=== PATIENT | female | born 1975 | race Caucasian/White ===

== ENCOUNTER → 2016-11-19 | Outpatient (CLI) | payer OTHER ==
--- NOTE | 2016-11-19 07:50 | US ---
EXAMINATION TYPE: US transvaginal DATE OF EXAM: 11/19/2016 COMPARISON: prior us 2013 CLINICAL HISTORY: D25.9 UTERINE FIBROID. dub, gen pelvic pain and pressure TECHNIQUE: Transvaginal (TV) pelvic ultrasound. Date of LMP: 3 wks ago EXAM MEASUREMENTS: Uterus: 12.8 x 8.9 x 10.8 cm Endometrial Stripe: 0.7 cm Right Ovary: 2.2 x 1.3 x 1.8 cm Left Ovary: 3.2 x 1.7 x 3.9 cm 1. Uterus: Anteverted Enlarged, bulky fibroid uterus, largest fibroid mid uterine body measuring 5 .1 x 5.4 x 5.1cm 2. Endometrium: limitations due to scattered attenuating fibroids 3. Right Ovary: wnl 4. Left Ovary: seen with a 1.7cm cyst 5. Bilateral Adnexa: wnl 6. Posterior cul-de-sac: 3.8 x 2.4 x 2.1cm free fluid seen There is markedly heterogeneous prominent uterus felt to reflect underlying fibroids. No well-defined hypoechoic fibroid is clearly seen. Technologist torres 5.1 x 5.4 cm ill-defined isoechoic area centr ally and inferiorly could reflect focal fibroid. Endometrial stripe not well seen on images saved. Sm all amount of free fluid is seen in pelvic cul-de-sac. Both ovaries are identified. Peripheral follicles are scattered throughout the left ovary. No suspici ous adnexal masses are seen. IMPRESSION: Heterogeneous prominent uterus likely reflects underlying fibroids, findings could be bet ter evaluated and characterized with pelvic MRI if desired.
== END | disposition home or self-care (01) ==
LOC: RADUSWWP 06:56
PROVIDERS: ATTEND Obstetrics & Gynecology
DX: D25.9 Leiomyoma of uterus, unspecified (principal)
CPT/HCPCS: 76830

== ENCOUNTER → 2017-09-10 | Outpatient (CLI) | payer BC ==
--- NOTE | 2017-09-10 08:47 | US ---
EXAMINATION TYPE: US gallbladder DATE OF EXAM: 09/10/2017 COMPARISON: NONE CLINICAL HISTORY: R10.9 Abdominal Pain. Intermittent RUQ pain, acid reflux EXAM MEASUREMENTS: Liver Length: 16.1 cm Gallbladder Wall: 0.2 cm CBD: 0.4 cm Right Kidney: 10.3 x 4.5 x 4.3 cm Pancreas: visualized portions wnl, head and tail limited by overlying midline bowel gas Liver: wnl Gallbladder: appears slightly distended Evidence for sonographic Obrien's sign: no CBD: visualized portions wnl, limited by overlying bowel gas Right Kidney: visualized portions wnl, inferior pole limited by overlying bowel gas and cortical easton sured differentiation is maintained There is no ascites. IMPRESSION: There are some limitations to the exam. No abnormality evident to account for patient's s ymptoms.
== END | disposition home or self-care (01) ==
LOC: RADUSWWP 07:00
PROVIDERS: ATTEND Family Medicine
DX: R10.9 Unspecified abdominal pain (principal)
CPT/HCPCS: 76705

== ENCOUNTER → 2017-11-20 | Outpatient (CLI) | payer BC ==
--- NOTE | 2017-11-21 13:53 | MM ---
Reason for exam: screening (asymptomatic). Last mammogram was performed 4 years ago. History: Patient is nulliparous. Taking hormonal contraceptives for 20 years. Physical Findings: A clinical breast exam by your physician is recommended on an annual basis and results should be correlated with mammographic findings. MG Screening Mammo w CAD Bilateral CC and MLO view(s) were taken. Prior study comparison: December 01, 2013, bilateral MG screening mammo w CAD. The breast tissue is heterogeneously dense. This may lower the sensitivity of mammography. Focal asymmetry upper inner right breast 4.7cm from nipple. This finding is changed when compared with previous exams. ASSESSMENT: Incomplete: need additional imaging evaluation, BI-RAD 0 RECOMMENDATION: Special view mammogram of the right breast. If lesion persists on supplemental views, image directed ultrasound is recommended. [facility] will attempt to contact patient to return for supplemental views and ultrasound if indicated.
== END | disposition home or self-care (01) ==
LOC: RADMAMWWP 08:20
PROVIDERS: ATTEND Obstetrics & Gynecology
DX: Z12.31 Encounter for screening mammogram for malignant neoplasm of breast (principal)
CPT/HCPCS: 77067

== ENCOUNTER → 2017-12-03 | Outpatient (CLI) | payer BC ==
--- NOTE | 2017-12-03 08:57 | MM ---
Reason for exam: additional evaluation requested from abnormal screening. Last mammogram was performed less than 1 month ago. History: Patient is nulliparous. Taking hormonal contraceptives for 20 years. Physical Findings: Nurse did not find any significant physical abnormalities on exam. MG Work Up Mamm w CAD RT Spot compression CC, spot compression MLO, and ML view(s) were taken of the right breast. Prior study comparison: November 20, 2017, bilateral MG screening mammo w CAD. December 01, 2013, bilateral MG screening mammo w CAD. No distinct lesion persists on additional views. These results were verbally communicated with the patient and result sheet given to the patient on 12/03/17. ASSESSMENT: Negative, BI-RAD 1 RECOMMENDATION: Return to routine screening mammogram schedule for both breasts.
== END | disposition home or self-care (01) ==
LOC: RADMAMWWP 07:31
PROVIDERS: ATTEND Obstetrics & Gynecology
DX: R92.8 Other abnormal and inconclusive findings on diagnostic imaging of breast (principal)
CPT/HCPCS: 77065

== ENCOUNTER 2018-12-25 08:17 | Inpatient (IN) | payer BC ==
--- NOTE | 2018-12-24 16:36 | P.HPOB ---
History of Present Illness H&P Date: 12/24/18 Chief Complaint: Fibroid uterus Selina is a 43-year-old female with uterine fibroids. Malena didn't present for a number of years, she is more troubled by them and has heavier bleeding due to same. She is scheduled for a robotic-assisted laparoscopic hysterectomy possible EDITH possible BSO. Risks/benefits/alternatives to this procedure were discussed with the patient in detail and all questions were answered for her prior to proceeding to the operating room. On physical exam vital signs are stable and afebrile. Heart regular, lungs clear, extremities without pain. Abdomen soft and nontender. Positive bowel sounds are noted. Pelvic exam reveals fibroid uterus. Assessment fiber uterus. Plan da Edgar hysterectomy possible EDITH possible BSO Past Medical History Past Medical History: GERD/Reflux Additional Past Medical History / Comment(s): uterine fibroid History of Any Multi-Drug Resistant Organisms: None Reported Past Surgical History: Orthopedic Surgery Additional Past Surgical History / Comment(s): lt trigger thumb Past Anesthesia/Blood Transfusion Reactions: Motion Sickness Smoking Status: Never smoker - Past Family History Mother Family Medical History: No Reported History Medications and Allergies Home Medications Medication Instructions Recorded Confirmed Type Amitriptyline HCl [Elavil] 20 mg PO HS 12/16/18 12/16/18 History Blisovi 1 tab PO HS 12/16/18 12/16/18 History Allergies Allergy/AdvReac Type Severity Reaction Status Date / Time No Known Allergies Allergy Verified 12/16/18 15:58 Exam Osteopathic Statement: *. No significant issues noted on an osteopathic structural exam other than those noted in the History and Physical/Consult.
[~2018-12-25 08:17] MED LIST: DEXAMETHASONE SOD PHOSPHATE 10 MG/ML 1 ML VIAL IV ONE; LIDOCAINE 1% 20 ML VIAL (10MG/ML) FOR IV START INTRADERMA PRN; ONDANSETRON 4 MG/2 ML VIAL IVP ONE; ONDANSETRON 4 MG/2 ML VIAL IVP PRN; SCOPOLAMINE 1.5MG/72HR PATCH TRANSDERM ONE; ceFAZolin IN SWFI 2 GM/20 ML SYRINGE IVP ONE
[2018-12-25] MEDS: LACTATED RINGERS 1,000 ML IV SCH ×3 (09:00→23:54)
[2018-12-25] MEDS ORDERED: PROPOFOL 10 MG/ML 20 ML VIAL IV ONE (09:46)
[2018-12-25] MEDS ORDERED: KETOROLAC 30 MG/ML 1 ML VIAL ONE (09:46)
[2018-12-25] MEDS ORDERED: NEOSTIGMINE 1 MG/ML 10 ML VIAL ONE (09:46)
[2018-12-25] MEDS ORDERED: LIDOCAINE 1% INJ 10MG/ML (20 ML MDV) ONE (09:46)
[2018-12-25] MEDS ORDERED: fentaNYL (PF) 50 MCG/ML 2 ML AMP ONE (09:46)
[2018-12-25] MEDS ORDERED: ROCURONIUM BROMIDE 10 MG/ML 10 ML VIAL IV ONE (09:46)
[2018-12-25] MEDS ORDERED: HYDROmorphone (PF) 1 MG/ML ONE (09:46)
[2018-12-25] MEDS ORDERED: MIDAZOLAM 2 MG/2 ML VIAL ONE (09:46)
[2018-12-25] MEDS ORDERED: GLYCOPYRROLATE 0.2 MG/ML 2 ML VIAL ONE (09:46)
[2018-12-25] MEDS ORDERED: BUPIVACAINE (PF) 0.25% 30 ML VIAL SQ ONE (09:49)
[2018-12-25] MEDS ORDERED: LACTATED RINGERS 1,000 ML IV ONE (11:25)
[2018-12-25] MEDS ORDERED: diphenhydrAMINE 50 MG/ML 1 ML VIAL IVP PRN (12:08)
[2018-12-25] MEDS ORDERED: SIMETHICONE 80 MG CHEWABLE PO PRN (12:08)
[2018-12-25] MEDS ORDERED: NALOXONE 0.4 MG/ML 1 ML VIAL IV PRN (12:10)
[2018-12-25] MEDS ORDERED: HYDROmorphone PCA 10 MG/50 ML BAG IV PRN (12:10)
--- NOTE | 2018-12-25 12:20 | P.OP ---
Date of Procedure: 12/25/18 Preoperative Diagnosis: Fibroid uterus Postoperative Diagnosis: Same Procedure(s) Performed: Robotic-assisted laparoscopic hysterectomy converted to total abdominal hysterectomy with salpingectomy Anesthesia: LEXIE Surgeon: Bib Garcia Skip Pitman #1: Shea Gallegos Estimated Blood Loss (ml): 250 IV fluids (ml): 800 Urine output (ml): 400 Pathology: other (Uterus cervix fallopian tubes) Condition: stable Disposition: floor Operative Findings: Grossly enlarged fibroid uterus with minimal mobility Description of Procedure: Patient was taken to the operating suite where a general anesthetic was found be adequate. She was prepped and draped in normal sterile fashion and placed in dorsal lithotomy position. Initially a weighted speculum was inserted into the vagina and the anterior lip of the cervix was identified and grasped single- toothed tenaculum. Cervix was then dilated and sounded to 14 cm. Once this was accomplished a Marilee manipulator was inserted with the cup size of 3 anesthetic excised of 12. Other incidents removed and sutures had been placed at 3 and 9. Powers cath was then placed gloves were changed and attention was turned to the abdominal portion procedure where 2 mL of quarter percent Marcaine was injected 2 cm above the umbilicus. Through this injected anesthetic a 5 mm skin incision was made and through this incision under direct visualization with an optical trocar and sleeve the camera was inserted. Once peritoneal placement was assured gas was left fully insufflate the abdomen and patient was then placed in steep Trendelenburg position. Once this was completed the uterus was elevated but was noted to be elevating minimally therefore a fourth port arm was placed. First the incision was made for the #1 arm 10 cm from the umbilicus and then slightly inferior medial to that under direct observation with transillumination another port and sleeve were inserted. Switching to the other side a on the left side a incision was made approximately 10-12 cm from the umbilicus and then a fifth port was inserted through a 1 cm incision between the left lateral and the medial port. Camera port was exchanged for a da Edgar port and the laparoscopic was removed and the robot was brought in and docked. Once fully docked a Jono was placed and 3 arm a scissor and the one arm and [place] grasper and at this point I did break scrub and go to the console. We were able to manipulate the uterus very minimally it was not mobile and would not come out of the pelvis at all despite multiple attempts. I did clamped cut and burn the tubal segment and utero-ovarian ligament on the left-hand side and then trying to rotate to do the symptoms same the left side the uterus would not manipulate far enough over to be able to access this tissue safely and I was unable to elevate the uterus into the abdomen further to be able to see around the uterus. Therefore at this point we did terminate the laparoscopic robotic component and incidents removed and gas was allowed to expel from the abdomen. 4-0 Vicryl used to close incision subcuticularly. Patient was repositioned slightly and once counts were correct a Pfannenstiel skin incision was made and this incision was extended to the fascial layer with Bovie cautery. Once fascia was nicked in the midline and this opening was extended laterally with Schilling scissors and superior and inferior aspect of this incision were then grasped tented up and bluntly and sharply dissected off the rectus muscles. Rectus muscles were then divided the midline and blunt dissection through the peritoneum was made. Once this was accomplished the peritoneal layer was extended superiorly and inferiorly with good visualization of both bowel bladder. Bladder blade was then placed with the self-retaining retractor and bowels packed out of the operative field. At this point towel clamps were used to clamp the top of the uterus and the uterus was manipulated really 1 cm at a time we are unable to pull the uterus up away from the pelvic sidewall initially therefore being very cautious with our placement of Annie clamps the right side of the uterus including the fallopian tube and round ligament complexes were clamped cut and tied as was the utero-ovarian ligament. Once this was completed and we're in a similar point as to what we had been able to accomplish laparoscopically we were then able to with some pressure pull the uterus up out of the posterior cul-de-sac and pelvis. Once this was, which were able to actually visualize the narrowing of the uterus around the fibroid and we were able to using a clamps clamped the uterine vasculature bilaterally tissues clamped cut and tied. Once this was accomplished uterus vesicular junction was identified and entered with Metzenbaum scissors and the bladder was then dissected bluntly out of the operative field. He clamps then used to clamp through the cardinal and uterosacral ligaments bilaterally. Tissues clamped cut and tied in usual fashion. Once the level of the cervix cuff cuff was entered and the corners were held with 0 Vicryl suture. Once uterus was fully removed 0 Vicryl suture was used to close the vaginal cuff in a running locking fashion. Excellent hemostasis was then obtained pelvis was irrigated with a liter of fluid. No bleeding is noted throughout any of the pedicles the fallopian tubes bilaterally were clamped and were then removed based on what we could still see. All tissue was sent to pathology for evaluation. Once this was completed instruments removed and bowel packing was removed. 0 Vicryl suture was then used to reapproximate the peritoneum. Fascial layer was then closed Lobac suture. One layer of 3-0 Vicryl was placed in deep subcuticular tissues reapproximate skin and close the space. Skin was then closed with 3-0 Vicryl in a running fashion subcuticular. Approximately 6-7 mL of quarter percent Marcaine with were then injected around these robotic incision sites. Sponge, lap, needle counts were all correct 2. Patient was then taken to the recovery room in stable and satisfactory condition.
[2018-12-25] MEDS: HYDROmorphone 0.5 MG/0.5 ML SYRINGE IVP PRN ×3 (12:22→13:09)
[2018-12-25 13:39] VITALS: BMI 34.2
[2018-12-25] MEDS: KETOROLAC 30 MG/ML 1 ML VIAL IVP SCH ×4 (13:40→23:49)
[2018-12-25] MEDS: ONDANSETRON 4 MG/2 ML VIAL IVP PRN (17:57)
[2018-12-25] MEDS: SENNOSIDES-DOCUSATE SODIUM 1 EACH TAB PO SCH (20:58)
[2018-12-26] MEDS: KETOROLAC 30 MG/ML 1 ML VIAL IVP SCH ×3 (06:28→12:06)
[2018-12-26 07:22] LABS: Basophils % (A) 0 %; Eosinophils % (A) 0 %; HCT 36.1 % (34.0-46.0); HGB 11.8 gm/dL (11.4-16.0); Lymphocytes # (A) 1.3 k/uL (1.0-4.8); Lymphocytes % (A) 12 %; MCH 29.5 pg (25.0-35.0); MCHC 32.6 g/dL (31.0-37.0); MCV 90.4 fL (80.0-100.0); Mean Platelet Volume 7.7; Monocytes # (A) 0.7 k/uL (0-1.0); Monocytes % (A) 6 %; Neutrophils # (A) 9.1 k/uL (1.3-7.7); Neutrophils % (A) 81 %; Platelet Count 261 k/uL (150-450); RDW 13.7 % (11.5-15.5); WBC 11.2 k/uL (3.8-10.6)
[2018-12-26] MEDS ORDERED: HYDROcodone/APAP 7.5-325MG 1 EACH TAB PO PRN (08:56)
--- NOTE | 2018-12-26 08:56 | P.PN ---
Progress Note - Text Progress Note Date: 12/26/18 Selina is doing very well postop day 1. She is ambulating and she has voided. She is stable and tolerating a liquid diet. We'll plan to increase diet today. Continued ablation today. Vital signs are stable and afebrile. Heart regular, lungs clear, extremities without pain. Abdomen is soft and nontender. Other than at her incision site. She does have bowel sounds. Incision is intact. We'll plan to remove dressing today and continue current care. Assessment postop day 1. Plan continue current care.
[2018-12-26] MEDS: IBUPROFEN 600 MG TAB PO SCH ×4 (09:11→23:30)
[2018-12-26] MEDS: SENNOSIDES-DOCUSATE SODIUM 1 EACH TAB PO SCH ×2 (09:14→20:14)
[2018-12-26] MEDS: ONDANSETRON 4 MG/2 ML VIAL IVP PRN (14:28)
[2018-12-26] MEDS: ONDANSETRON ODT 4 MG TAB PO PRN (14:35)
[2018-12-26] MEDS ORDERED: BISACODYL 10 MG SUPP RECTAL STA (15:03)
--- NOTE | 2018-12-26 15:45 | XR ---
EXAMINATION TYPE: XR KUB portable DATE OF EXAM: 12/26/2018 COMPARISON: None INDICATION: Abdominal bloating, recent hysterectomy. TECHNIQUE: Single view abdomen supine view FINDINGS: Some normal bowel gas is present within the upper abdomen. Within the pelvis there is some linear gas in the periphery of the pelvis. This is of uncertain location. This could be retroperitoneal as free air laparoscopic surgery would normally be within the mid abdomen. Consider CT abdomen and pelvis fo r additional evaluation. Psoas margins are normal. No organomegaly is present. No suspicious calcifications are present. IMPRESSION: 1. Some linear arranged air collections are in the periphery of the pelvis bilaterally of uncertain l ocation. This could be from recent hysterectomy. Correlate with the timing of the surgery. This could be retroperitoneal given the loculated nature of the air in the supine position. Consider CT abdomen and pelvis for additional evaluation. A Red level critical message alert has been initiated for Bib Garcia DO via the [employer] Critical Results System on 12/26/2018 3:41 PM. This message alert has been sent to DO ruben Webber the preferences provided by the clinician for the receipt of Radiology Critical Findings. Message ID [id number].
--- NOTE | 2018-12-26 16:16 | P.PN ---
Progress Note - Text Progress Note Date: 12/26/18 Ammy has been having increase in Essure and discomfort and pain in her abdomen therefore a plain film was ordered and the Jackson showed possible year in her retroperitoneal space which is an unusual finding for either laparoscopic or open procedure. It is unclear where this area could be emanating from and therefore we are ordering a CAT scan at the advice of radiology who requested a CT of abdomen and pelvis with IV contrast to further delineate where this might be coming from. It may very well be that is simply care from postop changes however need to rule out other processes that could account for the care. I did come in and see Ammy and we discussed the findings. Overall at this time she looks well. She has not passed flatus but she is voiding without difficulty and she is tolerating her diet. She relates that she has only minimal incisional tenderness and all though she does have some global abdominal tenderness there is minimal distention and she is feeling more gastric movement. She relates that at this time she does x-ray feel much better than she did earlier today but will move forward with CAT scan at radiology request.
--- NOTE | 2018-12-26 18:21 | CT ---
EXAMINATION TYPE: CT abdomen pelvis w con DATE OF EXAM: 12/26/2018 COMPARISON: None HISTORY: Lower abdominal pain post hysterectomy. CT DLP: 1793 mGycm Automated exposure control for dose reduction was used. TECHNIQUE: Helical acquisition of images was performed from the lung bases through the pelvis. CONTRAST: Performed without Oral Contrast and with IV Contrast, patient injected with 100ml mL of Isovue 300. FINDINGS: There is some atelectasis at the lung bases. There is no pericardial effusion. There is no pleural ef fusion. Liver and gallbladder appear normal. Bile ducts are not dilated. Spleen appears normal. There is no p ancreatic mass. Stomach appears normal. There is pneumoperitoneum consistent with recent hysterectomy . There is air bubbles in the anterior subcutaneous fat consistent with recent surgery. There is no adrenal mass. Kidneys show satisfactory contrast opacification. There is no hydronephrosi s. Ureters are not dilated. There is no retroperitoneal adenopathy. Bladder distends smoothly. There is no inguinal hernia. There is some free fluid in the pelvis. There is hysterectomy noted. There is no evidence of pelvic mass. The appendix appears normal. There is no sign of a bowel obstruction. The re is no mesenteric edema. The lumbar spine is intact. Bony pelvis appears intact. IMPRESSION: THERE IS PNEUMOPERITONEUM CONSISTENT WITH THE RECENT HISTORY OF HYSTERECTOMY. THERE IS FREE FLUID IN THE PELVIS THAT HAS INTERMEDIATE DENSITY AND MEASURES 2.5 CM. THIS COULD BE RELATED TO HEMORRHAGE. ALEX WEL LEAK IS NOT ENTIRELY EXCLUDED. THERE IS SOME PATCHY ATELECTASIS AT THE LUNG BASES.
[2018-12-27] MEDS: ONDANSETRON ODT 4 MG TAB PO PRN (06:40)
[2018-12-27] MEDS: IBUPROFEN 600 MG TAB PO SCH ×2 (06:40→13:08)
[2018-12-27] MEDS: SENNOSIDES-DOCUSATE SODIUM 1 EACH TAB PO SCH (07:27)
[2018-12-27 07:54] VITALS: BP 148/95; PULSE 86; RESP 18; TEMP 98.2
--- NOTE | 2018-12-27 10:18 | P.PN ---
Progress Note - Text Progress Note Date: 12/27/18 Overall Selina is doing well. She is ambulating, voiding and tolerating her diet. She is only on full liquids at this time but will try and advanced through the day. She is requesting discharge home tonight if at all possible. In evaluating her today she looks much improved over yesterday, she is passing flatus and is had 2 small bowel movements. She has no fever or chills or nausea at this time and most likely with continued improvement will be stable for discharge tonight. Her heart is regular, lungs are clear, extremities without pain. Abdomen is soft there is no distention and other than incisional tenderness she is without gross pain. Incision is otherwise clean dry and intact. Assessment postop day 2. Plan likely discharged home tonight. Prescriptions are provided for her for [place] and Motrin and discharge instructions were thoroughly reviewed. She'll follow up with me in 1 week.
== END 2018-12-27 14:30 | disposition home or self-care (01) | DRG 743 ==
LOC: OR 08:17 → 6PED 12:07
PROVIDERS: ADMIT Obstetrics & Gynecology; ATTEND Obstetrics & Gynecology
PROC: 0UT90ZZ Resection of Uterus, Open Approach (ICD-10-PCS; principal; 2018-12-25 09:25)
PROC: 0UJD4ZZ Inspection of Uterus and Cervix, Percutaneous Endoscopic Approach (ICD-10-PCS; principal; 2018-12-25 09:25)
PROC: 0UT70ZZ Resection of Bilateral Fallopian Tubes, Open Approach (ICD-10-PCS; principal; 2018-12-25 09:25)
PROC: 8E0W4CZ Robotic Assisted Procedure of Trunk Region, Percutaneous Endoscopic Approach (ICD-10-PCS; principal; 2018-12-25 09:25)
DX: D25.9 Leiomyoma of uterus, unspecified (principal); Z79.899 Other long term (current) drug therapy; Z53.31 Laparoscopic surgical procedure converted to open procedure
CPT/HCPCS: 74018; 74177; 81025; 85025; 86850; 86900; 86901; 88307

== ENCOUNTER 2018-12-30 02:41 | Emergency (ER) | payer BC ==
[2018-12-30 03:50] VITALS: BP 141/100; PULSE 70; RESP 18; TEMP 98.5
--- NOTE | 2018-12-30 04:03 | ED ---
General Adult HPI <Serena Wu - Last Filed: 12/30/18 04:38> - General Source: patient, RN notes reviewed, old records reviewed Mode of arrival: ambulatory Limitations: no limitations <Rony Radford - Last Filed: 12/30/18 18:34> - General Chief complaint: Extremity Injury, Lower Stated complaint: Post Surgery Poss Blood Clot Time Seen by Provider: 12/30/18 02:57 - History of Present Illness Initial comments: 43-year-old female patient with pertinent past mental history of hysterectomy 6 days ago presents to ED with concern of posterior right ankle/distal calf pain. Patient reports that she has a dull ache in this region. Patient reports that this area is not tender to touch, denies any swelling or redness in the right calf region. Patient denies any chest pain or shortness of breath. She denies any other complaints. Patient reports that she wants to ensure that she has not had a blood clot. Patient does report that she has been ambulatory, walking about, doing leg pump since her hysterectomy. Denies any other complaints at this time. Systemic: Pt denies fatigue, fever/chills, rash. Pt denies weakness, night sweats, weight loss. Neuro: Pt denies headache, visual disturbances, syncope or pre-syncope. HEENT: Pt denies ocular discharge or irritation, otalgia, rhinorrhea, pharyngitis or notable lymphadenopathy. Cardiopulmonary: Pt denies chest pain, SOB, heart palpitations, dyspnea on exertion. Abdominal/GI: Pt denies abdominal pain, n/v/d. : Pt denies dysuria, burning w/ urination, frequency/urgency. Denies new onset urinary or bowel incontinence. MSK: Pt denies loss of strength or function in extremities. Neuro: Pt denies new onset weakness, paresthesias. (Rony Radford) - Related Data Home Medications Medication Instructions Recorded Confirmed Amitriptyline HCl [Elavil] 20 mg PO HS 12/16/18 12/25/18 Blisovi 1 tab PO HS 12/16/18 12/25/18 Previous Rx's Medication Instructions Recorded HYDROcodone/APAP 5-325MG [[place] 1 tab PO Q4HR PRN #30 tab 12/27/18 5-325] Ibuprofen [Motrin] 600 mg PO Q6HR PRN #30 tab 12/27/18 Allergies Allergy/AdvReac Type Severity Reaction Status Date / Time No Known Allergies Allergy Verified 12/25/18 13:33 Review of Systems ROS Other: All systems not noted in ROS Statement are negative. <WuSerena P - Last Filed: 12/30/18 04:38> ROS Other: All systems not noted in ROS Statement are negative. <Rony Radford - Last Filed: 12/30/18 18:34> ROS Statement: Those systems with pertinent positive or pertinent negative responses have been documented in the HPI. Past Medical History Past Medical History: GERD/Reflux Additional Past Medical History / Comment(s): uterine fibroid History of Any Multi-Drug Resistant Organisms: None Reported Past Surgical History: Hysterectomy, Orthopedic Surgery Additional Past Surgical History / Comment(s): lt trigger thumb Past Anesthesia/Blood Transfusion Reactions: Motion Sickness Past Psychological History: No Psychological Hx Reported Smoking Status: Never smoker Past Alcohol Use History: Occasional Past Drug Use History: None Reported - Past Family History Mother Family Medical History: No Reported History <Rony Radford - Last Filed: 12/30/18 18:34> General Exam Limitations: no limitations <Rony Radford - Last Filed: 12/30/18 18:34> - General Exam Comments Initial Comments: Constitutional: NAD, AOX3, Pt has pleasant affect. HEENT: NC/AT, trachea midline, neck supple, no lymphadenopathy. Posterior pharynx non erythematous, without exudates. External ears appear normal, without discharge. Mucous membranes moist. Eyes PERRLA, EOM intact. There is no scleral icterus. No pallor noted. Cardiopulmonary: RRR, no murmurs, rubs or gallops, no JVD noted. Lungs CTAB in anterior and posterior luu. No peripheral edema. Abdominal exam: Abdomen soft and non-distended. Abdomen non-tender to palpation in all 4 quadrants. Bowel sounds active in LLQ. No hepatosplenomegaly. No ecchymosis Neuro: CN II-XII grossly intact. No nuchal rigidity. No raccon eyes, no lopez sign, no hemotympanum. No cervical spinal tenderness. MSK: Right lower extremity non-erythematous, nontender to palpation, no swelling or edema. No posterior calf tenderness bilaterally, homans sign negative bilaterally. Posterior tibialis and radial pulse +2 bilaterally. Sensation intact in upper and lower extremities. Full active ROM in upper and lower extremities, 5/5 stregnth. (Rony Radford) Course Vital Signs 12/30/18 12/30/18 12/30/18 02:48 03:49 04:50 Temperature 97.9 F 98.5 F Pulse Rate 95 70 Respiratory 16 18 18 Rate Blood Pressure 147/87 141/100 O2 Sat by Pulse 100 98 Oximetry Medical Decision Making <Rony Radford - Last Filed: 12/30/18 18:34> - Medical Decision Making 43-year-old female patient presents ED chief complaint of right distal calf pain, 1 of blood clot. Patient wasn't stable, afebrile. Physical exam did not display acute pathology. Ultrasound right lower extremity that display any evidence. DVT. Patient's discharge, follow up with primary care provider, return to ER if condition worsens. Case signed out to attending physician Dr. Wu pending US. (Rony Radford) Disposition Is patient prescribed a controlled substance at d/c from ED?: No <Serena Wu - Last Filed: 12/30/18 04:38> Is patient prescribed a controlled substance at d/c from ED?: No <Rony Radford - Last Filed: 12/30/18 18:34> Clinical Impression: Myalgia, Leg pain Disposition: HOME SELF-CARE Condition: Stable Instructions (If sedation given, give patient instructions): Foot Contusion (ED) Referrals: None,Stated [Primary Care Provider] - 1-2 days
--- NOTE | 2018-12-30 04:31 | US ---
EXAM: US Duplex Right Lower Extremity Veins CLINICAL HISTORY: ITS.REASON US Reason: Pain TECHNIQUE: Real-time duplex ultrasound scan of the right lower extremity veins integrating B-mode two-dimensional vascular structure, Doppler spectral analysis, color flow Doppler imaging and compression. COMPARISON: No relevant prior studies available. FINDINGS: Deep veins: No DVT in the visualized right lower extremity veins. Limited evaluation of calf veins. Superficial veins: Unremarkable as visualized. Soft tissues: No acute findings. IMPRESSION: No evidence of deep venous thrombosis.
== END 2018-12-30 04:55 | disposition home or self-care (01) ==
LOC: EC 02:41
DX: M79.18 Myalgia, other site (principal); Z79.3 Long term (current) use of hormonal contraceptives; Z79.899 Other long term (current) drug therapy
CPT/HCPCS: 99284

== ENCOUNTER → 2020-03-02 | Outpatient (CLI) | payer BC ==
--- NOTE | 2020-03-04 09:53 | MM ---
Reason for exam: screening (asymptomatic). Last mammogram was performed 1 year and 3 months ago. History: Patient is postmenopausal and is nulliparous. Taking hormonal contraceptives for 20 years. Physical Findings: A clinical breast exam by your physician is recommended on an annual basis and results should be correlated with mammographic findings. MG 3D Screening Mammo W/Cad Bilateral CC and MLO view(s) were taken. Prior study comparison: December 04, 2018, bilateral MG 3d screening mammo w/cad. December 03, 2017, right breast MG work up mamm w CAD RT. Asymmetry greater in the left breast. No significant changes when compared with prior studies. ASSESSMENT: Benign, BI-RAD 2 RECOMMENDATION: Routine screening mammogram of both breasts in 1 year.
== END | disposition home or self-care (01) ==
LOC: RADMAMWWP 10:43
PROVIDERS: ATTEND Obstetrics & Gynecology
DX: Z12.31 Encounter for screening mammogram for malignant neoplasm of breast (principal)
CPT/HCPCS: 77063; 77067

== ENCOUNTER → 2021-03-06 | Outpatient (CLI) | payer BC ==
--- NOTE | 2021-03-07 08:09 | MM ---
Reason for exam: screening (asymptomatic). Last mammogram was performed 1 year ago. History: Patient is nulliparous. Took hormonal contraceptives for 20 years. Physical Findings: A clinical breast exam by your physician is recommended on an annual basis and results should be correlated with mammographic findings. MG 3D Screening Mammo W/Cad Bilateral CC and MLO view(s) were taken. Prior study comparison: March 02, 2020, bilateral MG 3d screening mammo w/cad. December 04, 2018, bilateral MG 3d screening mammo w/cad. November 20, 2017, bilateral MG screening mammo w CAD. December 01, 2013, bilateral MG screening mammo w CAD. The breast tissue is heterogeneously dense. This may lower the sensitivity of mammography. Nodular focal asymmetry central upper outer quadrant left breast is more defined. ASSESSMENT: Incomplete: need additional imaging evaluation, BI-RAD 0 RECOMMENDATION: Special view mammogram of the left breast. (3D) If lesion persists on supplemental views, image directed ultrasound is recommended. [facility] will attempt to contact patient to return for supplemental views and ultrasound if indicated.
== END | disposition home or self-care (01) ==
LOC: RADMAMWWP 07:08
PROVIDERS: ATTEND Obstetrics & Gynecology
DX: Z12.31 Encounter for screening mammogram for malignant neoplasm of breast (principal)
CPT/HCPCS: 77063; 77067

== ENCOUNTER → 2021-03-15 | Outpatient (CLI) | payer BC ==
--- NOTE | 2021-03-15 08:57 | MM ---
Reason for exam: additional evaluation requested from abnormal screening. Last mammogram was performed less than 1 month ago. History: Patient is nulliparous. Took hormonal contraceptives for 20 years. Physical Findings: Nurse did not find any significant physical abnormalities on exam. MG 3D Work Up W/Cad LT Spot compression CC, spot compression MLO, and ML view(s) were taken of the left breast. Prior study comparison: March 06, 2021, bilateral MG 3d screening mammo w/cad. March 02, 2020, bilateral MG 3d screening mammo w/cad. The breast tissue is heterogeneously dense. This may lower the sensitivity of mammography. 11mm nodule 2 o'clock left breast 6.8cm from nipple. These results were verbally communicated with the patient and result sheet given to the patient on 03/15/21. ASSESSMENT: Incomplete: need additional imaging evaluation, BI-RAD 0 RECOMMENDATION: Ultrasound of the left breast.
--- NOTE | 2021-03-15 08:58 | USB ---
Reason for exam: additional evaluation requested from abnormal screening. History: Patient is nulliparous. Took hormonal contraceptives for 20 years. US Breast Workup Limited LT Left limited breast ultrasound including focal area of concern, retroareolar and axilla demonstrates a 0.9 x 0.8 x 0.6cm oval, lobular, cystic lesion at 2 o'clock. Scanned 12-3 o'clock. These results were verbally communicated with the patient and result sheet given to the patient on 03/15/21. ASSESSMENT: Benign, BI-RAD 2 RECOMMENDATION: Return to routine screening mammogram schedule for both breasts.
== END | disposition home or self-care (01) ==
LOC: RADMAMWWP 07:06
PROVIDERS: ATTEND Obstetrics & Gynecology
DX: R92.8 Other abnormal and inconclusive findings on diagnostic imaging of breast (principal)
CPT/HCPCS: 77061; 77065